=== PATIENT | female | born 1950 ===

== ENCOUNTER 2017-12-04 12:18 | Outpatient (CLI) | payer OTHER ==
[~2017-12-04] VITALS: Ht 160 cm; Wt 49.4 kg
== END 2017-12-04 12:45 | disposition home or self-care (01) ==
LOC: OFIC 805 12:18
DX: H61.23 Impacted cerumen, bilateral (principal); H93.11 Tinnitus, right ear; H90.41 Sensorineural hearing loss, unilateral, right ear, with unrestricted hearing on the contralateral side

== ENCOUNTER 2017-12-18 06:06 | Outpatient (CLI) | payer OTHER | END 2017-12-18 06:22 | disposition home or self-care (01) | LOC: LAB 06:06 | DX: D56.8 Other thalassemias (principal); D50.9 Iron deficiency anemia, unspecified; E03.8 Other specified hypothyroidism; E78.2 Mixed hyperlipidemia; I11.9 Hypertensive heart disease without heart failure; E56.8 Deficiency of other vitamins; N39.0 Urinary tract infection, site not specified; Z12.11 Encounter for screening for malignant neoplasm of colon; R19.5 Other fecal abnormalities; E55.9 Vitamin D deficiency, unspecified; N19 Unspecified kidney failure; E11.9 Type 2 diabetes mellitus without complications; R80.8 Other proteinuria; K92.1 Melena; C18.9 Malignant neoplasm of colon, unspecified ==

== ENCOUNTER 2019-05-13 07:45 | Outpatient (CLI) | payer OTHER ==
[~2019-05-13] VITALS: Ht 152.4 cm; Wt 49.9 kg
== END 2019-05-13 09:00 | disposition home or self-care (01) ==
LOC: OFIC 805 07:45
DX: R04.0 Epistaxis (principal); J32.4 Chronic pansinusitis; J34.2 Deviated nasal septum

== ENCOUNTER → 2020-02-11 07:32 | Outpatient (CLI) | payer OTHER | END | disposition home or self-care (01) | LOC: LAB 07:32 | PROVIDERS: ATTEND Internal Medicine Geriatric Medicine | DX: E03.8 Other specified hypothyroidism (principal); D50.8 Other iron deficiency anemias; E78.2 Mixed hyperlipidemia; I11.9 Hypertensive heart disease without heart failure; E56.8 Deficiency of other vitamins; N39.0 Urinary tract infection, site not specified; Z12.11 Encounter for screening for malignant neoplasm of colon; E55.9 Vitamin D deficiency, unspecified; N19 Unspecified kidney failure; E11.9 Type 2 diabetes mellitus without complications; R80.8 Other proteinuria; C18.0 Malignant neoplasm of cecum; K92.1 Melena ==